=== PATIENT | female | born 1985 | race African-American/Black ===

== ENCOUNTER 2017-04-15 13:03 | Emergency (ER) | payer MEDICAID, SELFPAY | END 2017-04-15 14:01 | disposition home or self-care (01) | LOC: ERS 13:03 | DX: J10.1 Influenza due to other identified influenza virus with other respiratory manifestations (principal); F32.9 Major depressive disorder, single episode, unspecified; F17.210 Nicotine dependence, cigarettes, uncomplicated | CPT/HCPCS: 99283 ==

== ENCOUNTER 2019-05-10 17:08 | Emergency (ER) | payer OTHER | END 2019-05-10 18:50 | disposition home or self-care (01) | LOC: ERS 17:08 | DX: K03.81 Cracked tooth (principal); H65.92 Unspecified nonsuppurative otitis media, left ear; K21.9 Gastro-esophageal reflux disease without esophagitis; F32.9 Major depressive disorder, single episode, unspecified; F17.210 Nicotine dependence, cigarettes, uncomplicated | CPT/HCPCS: 87804; 99283 ==

== ENCOUNTER 2022-09-27 09:27 | Emergency (ER) | payer MEDICAID, SELFPAY ==
[2022-09-27 09:56] LABS: Hemoglobin 12.6 g/dL (12.0-16.0); Mean Corpuscular HGB CONC 34.1 g/dL (32.0-36.0); Mean Corpuscular Hemoglobin 35.4 pg (27.0-31.0); Mean Corpuscular Volume 103.7 fl (78.0-98.0); Mean Platelet Volume 10.4 fL (7.4-10.4); Platelet Count 228 10x3/uL (130-400); RBC Distribution Width 12.8 % (11.5-14.5); Red Blood Cell (RBC) Count 3.56 mill/uL (4.20-5.40); White Blood Cell (WBC) Count 6.8 10x3/uL (4.8-10.8)
[2022-09-27 09:59] LABS: Delete Auto Diff?? YES; Manual Diff?? YES
[2022-09-27 10:02] LABS: BHCG - Serum POSITIVE (NEGATIVE); Pregs Control Background? CLEAR/WHITE (CLR/WHITE); Pregs Control Bar Appear? YES (CONTROL BAR)
[2022-09-27 10:18] LABS: ALT (SGPT) 9 U/L (8-55); AST (SGOT) 13 U/L (5-34); Alkaline Phosphatase 56 U/L (40-110); Anion Gap 11 mmol/L (10-20); BUN (Urea Nitrogen) 8 mg/dL (7.0-18.7); Bilirubin, Total 0.4 mg/dL (0.2-1.2); Calc. Creatinine Clearance 0 mL/min (70-130); Calcium 9.4 mg/dL (7.8-10.44); Carbon Dioxide 22 mmol/L (22-29); Chloride 105 mmol/L (98-107); Estimated GFR 84; Glucose 88 mg/dL (70-105); Lipase 12 U/L (8-78); Potassium 4.1 mmol/L (3.5-5.1); Sodium 134 mmol/L (136-145)
[2022-09-27 10:21] LABS: CellaVision Operator ID LAB.GE; Eosinophils 3 % (0-10); Hypersegmented Neutrophil SLIGHT (None Seen); Lymphocytes 19 % (21-51); Macrocytosis SLIGHT = 6-15 cells HPF (0-5); Monocytes 13 % (0-10); Neutrophil 64 % (42-75); Platelet Adequacy Comment Platelets Normal; Polychromasia SLIGHT = 2-3 cells HPF (0-2); Reactive Lymphocytes 1 % (0-10); Total Cell Count 100
== END 2022-09-27 11:04 | disposition left against medical advice (07) ==
LOC: ERS 09:27
DX: Z53.21 Procedure and treatment not carried out due to patient leaving prior to being seen by health care provider (principal)
CPT/HCPCS: 36415; 80053; 83690; 84702; 84703; 85025

== ENCOUNTER 2022-10-29 07:34 | Emergency (ER) | payer BC, SELFPAY ==
[2022-10-29] MEDS ORDERED: Acetaminophen 500 MG TAB ONE (08:18)
[2022-10-29 08:29] LABS: Bacteria/HPF None Seen HPF (None Seen); Bilirubin Negative (Negative); Blood, Urine 3+ (Negative); CAUTI Indications for Culture Pelvic or flank pain; Clarity Clear (Clear); Glucose, Urine (Dipstick) Normal (Negative); Ketone, Urine Negative (Negative); Leukocyte Negative Leu/uL (Negative); Nitrite Negative (Negative); Protein, Urine (Dipstick) Negative (Neg-Trace); RBC/HPF 21-50 HPF (0-3); Specific Gravity, Urine 1.017 (1.002-1.036); Squamous Epithelial 0-3 HPF (0-3); Urobilinogen Normal mg/dL (Less than 2); pH, Urine 6.5 (5.0-9.0)
[2022-10-29 08:30] LABS: Pregnancy Test - Urine (BHCG) POSITIVE (Negative); Pregu Control Background? CLEAR/WHITE (CLR/WHITE); Pregu Control Bar Appear? YES (CONTROL BAR); Specific Gravity 1.017 (1.002-1.036); Urine Culture Reflex No No
[2022-10-29 08:33] LABS: #Eosinphils 0.1 thou/uL (0.0-0.7); #Monocytes 0.8 thou/uL (0.11-0.59); #Neutrophils 9.9 thou/uL (1.40-6.50); %Basophils 0.2 % (0.0-1.0); %Eosinophils 0.6 % (0.0-10.0); %Lymphocytes 11.5 % (21.0-51.0); %Monocytes 6.4 % (0.0-10.0); %Neutrophils 80.9 % (42.0-75.0); Hemoglobin 11.6 g/dL (12.0-16.0); Mean Corpuscular HGB CONC 34.8 g/dL (32.0-36.0); Mean Corpuscular Hemoglobin 35.3 pg (27.0-31.0); Mean Corpuscular Volume 101.2 fl (78.0-98.0); Mean Platelet Volume 10.2 fL (7.4-10.4); Platelet Count 241 10x3/uL (130-400); RBC Distribution Width 12.5 % (11.5-14.5); Red Blood Cell (RBC) Count 3.29 mill/uL (4.20-5.40); White Blood Cell (WBC) Count 12.2 10x3/uL (4.8-10.8)
[2022-10-29] MEDS ORDERED: fentaNYL 50 mcg/mL 1 mL Vial ONE ×2 (08:41→10:20)
[2022-10-29 08:58] LABS: ALT (SGPT) 10 U/L (8-55); AST (SGOT) 14 U/L (5-34); Albumin 4.1 g/dL (3.5-5.0); Alkaline Phosphatase 58 U/L (40-110); Anion Gap 15 mmol/L (10-20); BUN (Urea Nitrogen) 6 mg/dL (7.0-18.7); Bilirubin, Total 0.3 mg/dL (0.2-1.2); Calc. Creatinine Clearance 0 mL/min (70-130); Calcium 9.7 mg/dL (7.8-10.44); Carbon Dioxide 19 mmol/L (22-29); Chloride 103 mmol/L (98-107); Estimated GFR 105; Globulin 2.8 g/dL (2.4-3.5); Glucose 121 mg/dL (70-105); Potassium 3.8 mmol/L (3.5-5.1); Protein, Total 6.9 g/dL (6.0-8.3); Sodium 133 mmol/L (136-145)
[2022-10-29] MEDS ORDERED: Ketorolac Tromethamine 30 MG/ML VIAL ONE (09:25)
== END 2022-10-29 11:05 | disposition home or self-care (01) ==
LOC: ERS 07:34
DX: O03.4 Incomplete spontaneous abortion without complication (principal); Z3A.00 Weeks of gestation of pregnancy not specified
CPT/HCPCS: 36415; 76856; 80053; 81001; 81025; 84702; 85025; 86900; 86901; 96361; 96374; 96375; 96376; J1885; J3010